=== PATIENT | male | born 1955 | race Caucasian/White ===

== ENCOUNTER → 2016-07-26 | Day surgery (SDC) | payer BC ==
[2016-07-21 08:24] VITALS: BMI 30.4
[~2016-07-26] MED LIST: LACTATED RINGERS 1,000 ML IV SCH; LIDOCAINE 1% 20 ML VIAL (10MG/ML) FOR IV START INTRADERMA PRN; PROPOFOL 10 MG/ML 20 ML VIAL IV ONE
[2016-07-26 12:03] VITALS: RESP 16; TEMP 98.7
--- NOTE | 2016-07-26 13:25 | P.GSHP ---
History of Present Illness H&P Date: 07/26/16 Chief Complaint: GERD, diverticulitis, screening colonoscopy This is a 60-year-old male referred from Dr. Erwin. Patient rents today for EGD colonoscopy. He has had issues with GERD. He is also had problems with intermittent small bowel obstruction. Patient history of diverticulitis. - Constitutional Constitutional: Reports as per HPI Past Medical History Past Medical History: Hypertension, Osteoarthritis (OA) Additional Past Medical History / Comment(s): Diverticulitis, hx perforated bowel History of Any Multi-Drug Resistant Organisms: None Reported Past Surgical History: Bowel Resection, Hernia Repair, Orthopedic Surgery Additional Past Surgical History / Comment(s): bowel resection due to perforation, incisional hernia repair, R carpal tunnel release. Past Anesthesia/Blood Transfusion Reactions: No Reported Reaction Past Psychological History: No Psychological Hx Reported Smoking Status: Former smoker Past Alcohol Use History: Occasional Additional Past Alcohol Use History / Comment(s): Pt smoked from [id number], smoked < 1PPD Past Drug Use History: None Reported - Past Family History Father Family Medical History: Cancer, Dementia Additional Family Medical History / Comment(s): . Mother Family Medical History: No Reported History Additional Family Medical History / Comment(s): Mother will soon be 90yrs old. Sister(s) Family Medical History: Cancer Medications and Allergies Home Medications Medication Instructions Recorded Confirmed Type Garlic 1 tab PO DAILY 06/09/16 07/21/16 History Losartan/Hydrochlorothiazide 1 tab PO DAILY 06/09/16 07/21/16 History [Losartan-Hctz 100-12.5 mg Tab] Richardson-3 Fatty Acids/Fish Oil [Fish 1 cap PO DAILY 06/09/16 07/21/16 History Oil 1,000 mg Softgel] Psyllium Husk (with Sugar) 6 gm PO DAILY 06/09/16 07/21/16 History [Metamucil Powder] Allergies Allergy/AdvReac Type Severity Reaction Status Date / Time No Known Allergies Allergy Verified 07/26/16 11:53 Surgical - Exam Vital Signs Temp Pulse Resp BP Pulse Ox 98.7 F 95 16 150/84 98 07/26/16 12:01 07/26/16 12:01 07/26/16 12:01 07/26/16 12:01 07/26/16 12:01 - General well developed, no distress - Eyes PERRL - ENT normal pinna - Neck no masses - Respiratory normal expansion - Cardiovascular Rhythm: regular - Abdomen Abdomen: soft, non tender Assessment and Plan Plan: GERD, history of diverticulitis we'll perform EGD and screening colonoscopy.
--- NOTE | 2016-07-26 13:48 | P.OP ---
Date of Procedure: 07/26/16 Preoperative Diagnosis: GERD Diverticulitis Screening colonoscopy Postoperative Diagnosis: Mild antral gastritis No evidence of hiatal hernia Minimal esophagitis Diverticulosis Procedure(s) Performed: EGD Colonoscopy Anesthesia: MAC Surgeon: Trae Murphy Pathology: other (Antrum, esophagus) Condition: stable Disposition: PACU Description of Procedure: The patient's placed on the endoscopy table in the lateral position. He received IV sedation. The gastroscope some placed oropharynx. Scope was then placed into the stomach and through the pylorus. The first and second portion of the duodenum appeared normal. Scope was then brought back the antrum and this. Mildly inflamed. A biopsies performed. Scope was unretroflexed and the remainder stomach appeared normal. There is no significant hiatal hernia. The GE junction was at 40 cm the distal esophagus. Inflamed a biopsies performed. The proximal esophagus appeared normal. The scope was withdrawn for patient. Next digital rectal exam was performed which revealed no abnormalities. The flexible colonoscope was then placed patient anus passed throughout the entire colon. The ileocecal valve sutures. The cecum, ascending and transverse colon appeared normal. In the descending and sigmoid colon there is significant diverticular changes. There were some diverticula very large lumens. There is no evidence of any active diverticulitis. The scope was then brought back the rectum this appeared normal. Scope was withdrawn for patient.
[2016-07-26 14:44] VITALS: BP 100/70; PULSE 66
== END ==
LOC: ORWHC2ENDO 11:36
PROVIDERS: ATTEND Surgery
DX: K21.0 Gastro-esophageal reflux disease with esophagitis (principal); K29.70 Gastritis, unspecified, without bleeding; K57.30 Diverticulosis of large intestine without perforation or abscess without bleeding; I10 Essential (primary) hypertension; M19.90 Unspecified osteoarthritis, unspecified site; Z79.899 Other long term (current) drug therapy; Z87.891 Personal history of nicotine dependence
CPT/HCPCS: 88305; 88342; 45378; 43239; J2704; 99153

== ENCOUNTER → 2019-07-26 | Outpatient (CLI) | payer OTHER ==
--- NOTE | 2019-07-27 10:51 | XR ---
EXAMINATION TYPE: XR thoracic spine 2V DATE OF EXAM: 07/26/2019 COMPARISON: NONE HISTORY: 63-year-old male thoracic spine pain TECHNIQUE: 3 views FINDINGS: 12 thoracic vertebral bodies. All pedicles are visualized. Moderate discogenic degenerative change particularly in the mid lumbar spine where mild anterior wedging of a couple midthoracic vert ebral bodies is demonstrated. Findings indented present in 2008 but with progression in degenerative disc disease. Alignment is maintained. IMPRESSION: 1. Moderate degenerative disc disease particularly in the mid lumbar spine, progressed from 2008. 2. Minimal anterior wedging of a couple mid thoracic vertebral bodies seems to have been present at t hat time as well. 3. Accentuated midthoracic kyphosis.
== END | disposition home or self-care (01) ==
LOC: RADXRMAIN 14:30
PROVIDERS: ATTEND Nurse Practitioner Adult Health
DX: M40.294 Other kyphosis, thoracic region (principal)
CPT/HCPCS: 72070

== ENCOUNTER → 2020-02-13 | Outpatient (CLI) | payer MEDICARE ==
--- NOTE | 2020-02-16 08:56 | US ---
EXAMINATION TYPE: US prostate transrectal DATE OF EXAM: 02/13/2020 COMPARISON: CT 07/03/2017 CLINICAL HISTORY: R97.20 elevated PSA level. Difficult exam due to enlarged prostate This examination was performed using the transrectal probe. EXAM MEASUREMENTS: Gland Size: 7.2 x 6.3 x 5.6 cm Volume: 134.7 Predicted PSA: 16.2 Actual PSA (if available): 4.3 Enlarged, bulky prostate. Prominent hypoechoic area visualized measuring 1.0 x 1.1 x 1.0 cm IMPRESSION: 1. There is a hypoechoic area measuring 1 cm within the mid prostate. Additionally, the prostate is h eterogenous and bulky. Additional workup is recommended. Consider biopsy. Predicted PSA = volume x 0.12 ng/ml Calculated Volume = 0.5236 x L x W x H
== END | disposition home or self-care (01) ==
LOC: RADUSWWP 08:00
PROVIDERS: ATTEND Family Medicine
DX: N42.89 Other specified disorders of prostate (principal)
CPT/HCPCS: 76872

== ENCOUNTER → 2020-03-30 | Outpatient (CLI) | payer MEDICARE ==
[2020-03-30 14:22] LABS: Basophils # (A) 0.1 k/uL (0-0.2); Basophils % (A) 1 %; Eosinophils # (A) 0.2 k/uL (0-0.7); Eosinophils % (A) 2 %; HCT 44.3 % (39.0-53.0); HGB 14.5 gm/dL (13.0-17.5); Lymphocytes # (A) 2.1 k/uL (1.0-4.8); Lymphocytes % (A) 28 %; MCH 31.6 pg (25.0-35.0); MCHC 32.8 g/dL (31.0-37.0); MCV 96.5 fL (80.0-100.0); Mean Platelet Volume 8.5; Monocytes # (A) 0.4 k/uL (0-1.0); Monocytes % (A) 6 %; Neutrophils # (A) 4.7 k/uL (1.3-7.7); Neutrophils % (A) 62 %; Platelet Count 202 k/uL (150-450); RBC 4.59 m/uL (4.30-5.90); RDW 12.6 % (11.5-15.5); WBC 7.5 k/uL (3.8-10.6)
== END | disposition home or self-care (01) ==
LOC: LABPAT 13:09
PROVIDERS: ATTEND Orthopaedic Surgery
DX: Z01.818 Encounter for other preprocedural examination (principal); G56.02 Carpal tunnel syndrome, left upper limb
CPT/HCPCS: 36415; 80051; 85025

== ENCOUNTER → 2020-08-05 | Day surgery (SDC) | payer MEDICARE ==
[2020-08-02 14:12] VITALS: BMI 32.3
[~2020-08-05] MED LIST changes: +GLUCAGON 1 MG/ML VIAL ONE; +LIDOCAINE 1% (10MG/ML) FOR IV START INTRADERMA PRN; -LIDOCAINE 1% 20 ML VIAL (10MG/ML) FOR IV START INTRADERMA PRN
[2020-08-05 08:06] VITALS: TEMP 97.3
--- NOTE | 2020-08-05 09:26 | P.GSHP ---
History of Present Illness H&P Date: 08/05/20 Chief Complaint: GI bleed This a 64-year-old male with history of colon cancer. Patient presents today for colonoscopy. Apparently said some rectal bleeding. Past Medical History Past Medical History: Hypertension, Osteoarthritis (OA), Pneumonia, Prostate Disorder Additional Past Medical History / Comment(s): Diverticulitis, hx perforated bowel, obstructed bowel History of Any Multi-Drug Resistant Organisms: None Reported Past Surgical History: Bowel Resection, Hernia Repair, Orthopedic Surgery Additional Past Surgical History / Comment(s): bowel resection due to perforation, incisional hernia repair, manuel carpal tunnel release. Past Anesthesia/Blood Transfusion Reactions: No Reported Reaction Smoking Status: Former smoker - Past Family History Father Family Medical History: Cancer Additional Family Medical History / Comment(s): prostate Mother Family Medical History: No Reported History Additional Family Medical History / Comment(s): Mother will soon be 90yrs old. Sister(s) Family Medical History: Cancer Additional Family Medical History / Comment(s): colon Medications and Allergies Home Medications Medication Instructions Recorded Confirmed Type Garlic 1 tab PO DAILY 06/09/16 08/05/20 History Cannabidiol (Cbd) [Epidiolex] 0 mg PO DIRECTED PRN 04/13/20 08/05/20 History Losartan Potassium [Cozaar] 100 mg PO DAILY 04/13/20 08/05/20 History Tamsulosin HCl [Flomax] 0.4 mg PO QAM 04/13/20 08/05/20 History hydroCHLOROthiazide [Hydrodiuril] 12.5 mg PO DAILY 04/13/20 08/05/20 History Allergies Allergy/AdvReac Type Severity Reaction Status Date / Time No Known Allergies Allergy Verified 08/02/20 14:06 Surgical - Exam Vital Signs Temp Pulse Resp BP Pulse Ox 97.3 F L 102 H 16 133/81 95 08/05/20 08:02 08/05/20 08:02 08/05/20 08:02 08/05/20 08:02 08/05/20 08:02 - General well developed, well nourished, no distress - Eyes PERRL - ENT normal pinna - Neck no masses - Respiratory normal expansion - Cardiovascular Rhythm: regular - Abdomen Abdomen: soft, non tender Assessment and Plan Assessment: History of cancer Rectal bleeding We'll perform colonoscopy.
--- NOTE | 2020-08-05 09:45 | P.OP ---
Date of Procedure: 08/05/20 Preoperative Diagnosis: GI bleed History of colon cancer Postoperative Diagnosis: Diverticulosis Incomplete colonoscopy Procedure(s) Performed: Colonoscopy Anesthesia: MAC Surgeon: Trae Murphy Pathology: none sent Condition: stable Disposition: PACU Description of Procedure: The patient's placed on the endoscopy table in the lateral position. He received IV sedation. Digital rectal exam is performed which revealed no abnormalities. Flexible colonoscope was then placed patient anus passer the colon. The colonoscope could not be passed beyond the sigmoid colon secondary to tortuosity valve. Several times made to maneuver the scope however this impossible. This was withdrawn. There was diverticular changes seen. There is no evidence of any GI bleed. Scope was brought back the rectum this appeared normal. Scope was withdrawn for patient. Patient was scheduled for a barium enema
[2020-08-05 11:18] VITALS: BP 123/77; PULSE 72; RESP 17
--- NOTE | 2020-08-05 17:30 | FL ---
EXAMINATION TYPE: FL barium enema w air contrast DATE OF EXAM: 08/05/2020 CLINICAL HISTORY: 64-year-old male incomplete colonoscopy to the level of the sigmoid colon. Prior hi story of bowel resection and hernia repair as well as 2 episodes of small bowel obstruction. TECHNIQUE: A double contrast barium enema study is performed. Total fluoroscopy time: 4 minutes 20 seconds Total images: 77 COMPARISON: CT 07/03/2017. FINDINGS: Band Tumbler view of the abdomen shows overall non-obstructive bowel gas pattern. Some coils are noted from prior anterior abdominal wall mesh repair. Mid sigmoid colon shows prominent diverticular change and some focal persistent narrowing that could be secondary to chronic diverticulitis. Only seen on the prone overhead radiograph, there is a possible 6 mm filling defect along the left la teral wall of the upper ascending colon, page 71 and 77. Otherwise, no other evidence of any mass or polyp, obstructing or constricting lesion throughout the colon. The appendix was filled and appeared normal. IMPRESSION: 1. Mid sigmoid diverticulosis with persistent short segment narrowing could reflect sequela of chroni c diverticulitis. If concern for annular mass, consideration can be given to CT with IV and rectal co ntrast. 2. Possible tiny 6 mm polyp along the left lateral wall of the upper ascending colon.
== END ==
LOC: ORWHC2ENDO 07:50
PROVIDERS: ATTEND Surgery
DX: K57.30 Diverticulosis of large intestine without perforation or abscess without bleeding (principal); Q43.8 Other specified congenital malformations of intestine; K92.2 Gastrointestinal hemorrhage, unspecified; I10 Essential (primary) hypertension; Z85.038 Personal history of other malignant neoplasm of large intestine; M19.90 Unspecified osteoarthritis, unspecified site; Z87.01 Personal history of pneumonia (recurrent); N40.0 Benign prostatic hyperplasia without lower urinary tract symptoms; Z87.19 Personal history of other diseases of the digestive system; Z90.49 Acquired absence of other specified parts of digestive tract; Z98.890 Other specified postprocedural states; Z87.891 Personal history of nicotine dependence; Z80.42 Family history of malignant neoplasm of prostate; Z80.0 Family history of malignant neoplasm of digestive organs; Z79.899 Other long term (current) drug therapy
CPT/HCPCS: 74280; 45378; J1610; J2704

== ENCOUNTER → 2020-08-20 | Outpatient (CLI) | payer MEDICARE ==
[2020-08-20 12:04] LABS: African American GFR (CKD) >90 (>60 ml/min/1.73 sqM); Blood Urea Nitrogen 20 mg/dL (9-20); Non-African American GFR(CKD) 78 (>60 ml/min/1.73 sqM)
--- NOTE | 2020-08-20 15:00 | CT ---
EXAMINATION TYPE: CT abdomen pelvis w con DATE OF EXAM: 08/20/2020 COMPARISON: CT abdomen and pelvis July 03, 2017 and June 09, 2016 HISTORY: Diverticulitis. CT DLP: 1859 mGycm, Automated Exposure Control for Dose Reduction was Utilized. CONTRAST: CT scan of the abdomen and pelvis is performed with rectal and with IV Contrast, patient injected wit h 100ml mL of Isovue 300. As requested. FINDINGS: LUNG BASES: No significant abnormality is appreciated. LIVER/GB: No significant abnormality is appreciated. PANCREAS: No significant abnormality is seen. SPLEEN: No significant abnormality is seen. ADRENALS: No significant abnormality is seen. KIDNEYS: Subcentimeter low dense lesion left kidney mid pole level posteriorly series 7 image 38 too small to further characterize. No hydronephrosis seen bilaterally. BOWEL: Rectal tube is in place. There is contrast opacification to the mid transverse colon. There is prominent diverticulosis somewhat with residual barium from recent enema. Some streak artifact at th is level makes evaluation suboptimal. Mvih-[id number] generalized narrowing and mild wall thickening . No obvious constricting mass. Remainder of colon unremarkable. No suspicious small bowel dilatation . PROSTATE/SEMINAL VESICLES: Enlarged prostate consistent with BPH. LYMPH NODES: No greater than 1cm abdominal or pelvic lymph nodes are appreciated. OSSEOUS STRUCTURES: Mild to moderate disc space narrowing and vacuum disc phenomenon L4-L5 level. Pos terior calcified disc herniation L2-L3 level effaces the anterior thecal sac. Multilevel spurring in the thoracic spine. Mild/moderate narrowing and spurring of both hip joints. OTHER: [id number] calcified plaque of the aorta extends into branch vessels. Small fat-containi ng bilateral inguinal hernias. Anterior clips from prior ventral wall hernia repair surgery noted. IMPRESSION: Prominent sigmoid colonic diverticulosis, CT findings along with abnormal findings sugges t some sequela of chronic diverticulitis. No obvious suspicious mass or adenopathy.
== END | disposition home or self-care (01) ==
LOC: RADCTMAIN 11:26
PROVIDERS: ATTEND Surgery
DX: K57.30 Diverticulosis of large intestine without perforation or abscess without bleeding (principal); R93.5 Abnormal findings on diagnostic imaging of other abdominal regions, including retroperitoneum; K57.33 Diverticulitis of large intestine without perforation or abscess with bleeding
CPT/HCPCS: 82565; 84520; 74177; 36415; Q9967

== ENCOUNTER → 2021-09-23 | Outpatient (CLI) | payer MEDICARE ==
--- NOTE | 2021-09-23 08:14 | US ---
EXAMINATION TYPE: US duplex aorta DATE OF EXAM: 09/23/2021 COMPARISON: NONE CLINICAL HISTORY: Z13.6 SCREENING FOR CARDIOVASCULAR DISEASE. EXAM MEASUREMENTS: Abdominal Aorta: Proximal: n/a Mid: 2.0 x 1.9cm Distal: 1.6 x 1.5cm Right Iliac: 1.0 x 1.3cm Left Iliac: 0.8 x 1.2cm Difficult and limited study due to patient body habitus Proximal portion of aorta obscured by overlying midline bowel gas, mid and distal aorta and proximal iliacs appear wnl IMPRESSION: Portions of the study are limited however no definite abdominal aortic aneurysm is appreciated at thi s time.
--- NOTE | 2021-09-23 10:00 | ECHOF ---
Referral Reason:I10 Essential primary hypertension MEASUREMENTS -------- HEIGHT: 177.8 cm WEIGHT: 106.6 kg BP: 126/60 RVIDd: 3.4 cm (< 3.3) IVSd: 1.6 cm (0.6 - 1.1) LVIDd: 3.2 cm (3.9 - 5.3) LVPWd: 1.5 cm (0.6 - 1.1) IVSs: 2.2 cm LVIDs: 2.2 cm LVPWs: 1.7 cm LA Diam: 3.6 cm (2.7 - 3.8) LAESV Index (A-L): 22.73 ml/m Ao Diam: 3.4 cm (2.0 - 3.7) AV Cusp: 2.5 cm (1.5 - 2.6) MV EXCURSION: 18.547 mm (> 18.000) MV EF SLOPE: 48 mm/s (70 - 150) EPSS: 0.5 cm MV E Tin: 0.74 m/s MV DecT: 201 ms MV A Tin: 0.70 m/s MV E/A Ratio: 1.05 AR PHT: 1688 ms RAP: 5.00 mmHg RVSP: 23.92 mmHg FINDINGS -------- Sinus rhythm. This was a technically adequate study. The left ventricular size is normal. There is moderate concentric left ventricular hypertrophy. O verall left ventricular systolic function is normal with, an EF between 60 - 65 %. The right ventricle is mildly enlarged. Normal LA size by volume 22+/-6 ml/m2. The right atrium is normal in size. Aneurysmal Interatrial septum. There is mild aortic regurgitation. The mitral valve is normal. Mild tricuspid regurgitation present. Right ventricular systolic pressure is normal at < 35 mmHg. Trace/mild (physiologic) pulmonic regurgitation. The aortic root size is normal. IVC Not well visulized. There is no pericardial effusion. CONCLUSIONS -------- 1. The left ventricular size is normal. 2. There is moderate concentric left ventricular hypertrophy. 3. Overall left ventricular systolic function is normal with, an EF between 60 - 65 %. 4. The right ventricle is mildly enlarged. 5. Normal LA size by volume 22+/-6 ml/m2. 6. Aneurysmal Interatrial septum. 7. There is mild aortic regurgitation. 8. Mild tricuspid regurgitation present. 9. Trace/mild (physiologic) pulmonic regurgitation. 10. There is no pericardial effusion. PACKAGING MANAGER: Grecia Small RDCS
== END | disposition home or self-care (01) ==
LOC: RADUSWWP 07:31
PROVIDERS: ATTEND Family Medicine
DX: Z13.6 Encounter for screening for cardiovascular disorders (principal); I11.9 Hypertensive heart disease without heart failure; I08.2 Rheumatic disorders of both aortic and tricuspid valves; I25.3 Aneurysm of heart
CPT/HCPCS: 93306; 93979

== ENCOUNTER 2022-01-10 06:27 | Day surgery (SDC) | payer MEDICARE ==
[2022-01-10] MEDS ORDERED: SODIUM CHLORIDE 0.9% 500 ML 500 ML IV ONE (06:48)
[2022-01-10 06:49] VITALS: TEMP 98.3
[2022-01-10] MEDS ORDERED: fentaNYL (PF) 50 MCG/ML 2 ML AMP ONE (07:18)
[2022-01-10 08:38] VITALS: RESP 16
[2022-01-10] MEDS: fentaNYL (PF) 50 MCG/ML 2 ML AMP IV ONE ×2 (08:47→08:51)
[2022-01-10] MEDS ORDERED: MIDAZOLAM 2 MG/2 ML VIAL IV ONE ×2 (08:47→08:51)
[2022-01-10 09:58] VITALS: BP 122/60; PULSE 60
--- NOTE | 2022-01-10 12:14 | P.PCN ---
Date of Procedure: 01/10/22 Operative Findings: TRANSESOPHAGEAL ECHOCARDIOGRAM BUSINESS OPERATIONS SPECIALIST: EDSON GIBBS MD, RPVI INDICATION: Rule out cardiac source of embolization in this gentleman who had TIA/CVA SEDATION: Conscious sedation COMPLICATION: None LEVEL OF SEDATION Moderate to sedation length of 12 minutes PROCEDURE DESCRIPTION: After obtaining an informed consent, the patient was brought to transesophageal echocardiogram room. Pulse oximetry and heart monitors were attached to the patient. The patient throat was sprayed using lidocaine. The patient was turned into left lateral position. After that a bite guard was placed. After an appropriate conscious sedation was initiated, the transesophageal echocardiogram was advanced through a bite guard into the mid esophagus. A 2-D echocardiogram images, color Doppler images, continuous wave images, pulse-wave images, of various cardiac structure were performed. After that the transesophageal echocardiogram probe was advanced into the stomach and fixed to obtain transgastric view was. The probe was brought into the mid esophagus. Inter-atrial septum was interrogated using 2D images, color Doppler images, and then contrast study. After that transesophageal echocardiogram was withdrawn out and upon withdrawing the descending thoracic aorta all the way up to the arch was evaluated. FINDING: Left ventricular dimension and systolic function appeared to be within normal limits. The right ventricular dimension and systolic function appeared to be within normal limits. The left atrium appeared to be mildly dilated. The left atrial appendage appeared to be free from any thrombus. The interatrial septum appeared to be intact. Aortic valve is trileaflet valve without stenosis with mild regurgitation. The mitral valve seems to be mildly thickened with mild MR. Normal tricuspid valve and pulmonic valve. No evidence of pericardial effusion identified CONCLUSION: 1. No evidence of cardiac source of embolization 2. Intact interatrial septum with no shunt 3. Intact left atrial appendage with no thrombus 4. Normal left ventricular dimension and systolic function 5. Mildly thickened mitral valve leaflets with mild MR 6. Aortic sclerosis with mild aortic regurgitation
== END 2022-01-10 10:08 | disposition home or self-care (01) ==
LOC: CATHCVL 06:27
PROVIDERS: ATTEND Internal Medicine Interventional Cardiology
DX: I08.0 Rheumatic disorders of both mitral and aortic valves (principal); I10 Essential (primary) hypertension; F17.210 Nicotine dependence, cigarettes, uncomplicated; E66.3 Overweight; Z20.822 Contact with and (suspected) exposure to COVID-19; Z86.73 Personal history of transient ischemic attack (TIA), and cerebral infarction without residual deficits; Z68.34 Body mass index [BMI] 34.0-34.9, adult; Z79.899 Other long term (current) drug therapy; Z79.82 Long term (current) use of aspirin; Z90.49 Acquired absence of other specified parts of digestive tract
CPT/HCPCS: 93312; 93325; 87635; J2250; J3010

== ENCOUNTER 2024-04-21 18:16 | Emergency (ER) | payer MEDICARE ==
[2024-04-21] MEDS: KETOROLAC 15 MG/ML 1 ML VIAL IM STA (19:06)
[2024-04-21] MEDS: KETOROLAC 15 MG/ML 1 ML VIAL IVP STA (19:06)
[2024-04-21] MEDS: HYDROmorphone 1 MG/ML 1 ML SYRINGE IM STA (19:06)
[2024-04-21] MEDS: HYDROmorphone 1 MG/ML 1 ML SYRINGE IVP STA (19:07)
--- NOTE | 2024-04-21 19:35 | ED ---
General Adult HPI - General Chief complaint: Extremity Injury, Upper Stated complaint: Fall Time Seen by Provider: 04/21/24 18:54 Source: patient, family, RN notes reviewed, old records reviewed Mode of arrival: ambulatory Limitations: no limitations - History of Present Illness Initial comments: 68-year-old male presenting with left shoulder pain. Patient fell in the shower with sudden onset deformity and pain of the left shoulder. No head or neck trauma. No other injuries reported. - Related Data Home Medications Medication Instructions Recorded Confirmed Garlic 1 tab PO DAILY 06/09/16 01/09/22 Losartan Potassium [Cozaar] 100 mg PO DAILY 04/13/20 01/09/22 Tamsulosin HCl [Flomax] 0.4 mg PO QAM 04/13/20 01/09/22 hydroCHLOROthiazide [Hydrodiuril] 12.5 mg PO DAILY 04/13/20 01/09/22 Aspirin 81 mg PO DAILY 01/09/22 01/09/22 Celecoxib [CeleBREX] 200 mg PO DAILY 01/09/22 01/09/22 Allergies Allergy/AdvReac Type Severity Reaction Status Date / Time No Known Allergies Allergy Verified 01/10/22 06:40 Review of Systems ROS Statement: Those systems with pertinent positive or pertinent negative responses have been documented in the HPI. ROS Other: All systems not noted in ROS Statement are negative. Past Medical History Past Medical History: Hypertension, Osteoarthritis (OA), Pneumonia, Prostate Disorder Additional Past Medical History / Comment(s): Diverticulitis, hx perforated bowel, obstructed bowel, slight leaky valve per pt., pneumonia couple years ago History of Any Multi-Drug Resistant Organisms: None Reported Past Surgical History: Bowel Resection, Hernia Repair, Orthopedic Surgery Additional Past Surgical History / Comment(s): bowel resection due to perforation, incisional hernia repair, manuel carpal tunnel release. Past Anesthesia/Blood Transfusion Reactions: No Reported Reaction Past Psychological History: No Psychological Hx Reported Smoking Status: Former smoker - Past Family History Father Family Medical History: Cancer Additional Family Medical History / Comment(s): prostate Mother Family Medical History: No Reported History Additional Family Medical History / Comment(s): Mother will soon be 90yrs old. Sister(s) Family Medical History: Cancer Additional Family Medical History / Comment(s): colon General Exam Limitations: no limitations General appearance: alert, in no apparent distress Head exam: Present: atraumatic, normocephalic Eye exam: Present: normal appearance, PERRL ENT exam: Present: normal exam Neck exam: Present: normal inspection. Absent: tenderness, meningismus Respiratory exam: Present: normal lung sounds bilaterally. Absent: respiratory distress, wheezes Cardiovascular Exam: Present: regular rate, normal rhythm GI/Abdominal exam: Present: soft. Absent: distended, tenderness Extremities exam: Present: other (Deformity of the left shoulder, diminished left radial pulse, patient reports numbness to the hand). Absent: tenderness Neurological exam: Present: alert, oriented X3 Psychiatric exam: Present: normal affect, normal mood Skin exam: Present: warm, dry, intact. Absent: cyanosis, diaphoretic Course Vital Signs 04/21/24 04/21/24 04/21/24 18:21 19:12 19:42 Temperature 97.6 F Pulse Rate 82 80 86 Respiratory 20 20 20 Rate Blood Pressure 150/79 139/65 157/70 O2 Sat by Pulse 97 98 92 L Oximetry 04/21/24 04/21/24 04/21/24 19:45 19:50 20:05 Temperature Pulse Rate 68 Respiratory 14 16 12 Rate Blood Pressure 149/65 163/83 139/69 O2 Sat by Pulse 86 L 81 L 93 L Oximetry Procedures - Orthopedic Joint Reduction Joint #1 Consent Obtained: written consent Side: left Joint Reduction Location: shoulder Analgesia: procedural sedation Shoulder Technique Used (if applicable): traction/counter-traction Post-Reduction Neuro Exam: intact Post-Reduction Vascular Exam: intact Post Reduction X-Ray Obtained: Yes Post Reduction X-Ray Results: reduced Splint Applied: Yes Patient Tolerated Procedure: well - Procedural Sedation *Procedural Sedation Start Time: 19:42 *Procedural Sedation Stop Time: 20:15 *Risks,benefits, and alternative therapies discussed?: Yes *Patient indicates understanding of risk/benefit discussion?: Yes *Indications: fracture/dislocation reduction Presedation Evaluation: Patient awake and alert, in sinus rhythm, vital signs stable. *ASA Class: II *Mallampati Airway Score: 2 Preparation: radiation monitor applied, pulse oximeter, capnometry used, supplemental O2 applied, suction/airway equipment at bedside, IV secured Ketamine: IV Ketamine Dose: 50 IV Propofol Dose (mgs): 50 Complications: none Patient Tolerated Procedure: well Medical Decision Making - Medical Decision Making Was pt. sent in by a medical professional or institution (THERESA Zepeda, SALES OPERATIONS CONSULTANT, urgent care, hospital, or retirement...) When possible be specific @ -No Did you speak to anyone other than the patient for history (EMS, parent, family, police, friend...)? What history was obtained from this source @ -No Did you review nursing and triage notes (agree or disagree)? Why? @ -I reviewed and agree with nursing and triage notes Were old charts reviewed (outside hosp., previous admission, EMS record, old EKG, old radiological studies, urgent care reports/EKG's, retirement records)? Report findings @ -No old charts were reviewed Differential Musculoskeletal Muscular strain, contusion, ligament sprain, fracture, arthritis, septic arthritis, bursitis, cellulitis, muscle spasm, nerve compression, DVT, arterial occlusion, herpes zoster, electrolyte abnormality, tumor.... This is not meant to be in all inclusive list EKG interpreted by me (3pts min.). @ -As above X-rays interpreted by me (1pt min.). @Initial x-ray showing anterior dislocation of the left shoulder without fracture. Postreduction x-ray shows reduced shoulder CT interpreted by me (1pt min.). @ -None done U/S interpreted by me (1pt. min.). @ -None done What testing was considered but not performed or refused? (CT, X-rays, U/S, labs)? Why? @ -None What meds were considered but not given or refused? Why? @ -None Did you discuss the management of the patient with other professionals (professionals i.e. THERESA Zepeda, SALES OPERATIONS CONSULTANT, lab, RT, psych nurse, psychotherapist social worker, entry level electrical engineer, teacher, special officer, director of casework department)? Give summary @ -No Was smoking cessation discussed for >3mins.? @ -No Was critical care preformed (if so, how long)? @ -No Were there social determinants of health that impacted care today? How? (Homelessness, low income, unemployed, alcoholism, drug addiction, transportation, low edu. Level, literacy, decrease access to med. care, long term, rehab)? @ -No Was there de-escalation of care discussed even if they declined (Discuss DNR or withdrawal of care, Hospice)? DNR status @ -No What co-morbidities impacted this encounter? (DM, HTN, Smoking, COPD, CAD, Cancer, CVA, ARF, Chemo, Hep., AIDS, mental health diagnosis, sleep apnea, morbid obesity)? @ -None Was patient admitted / discharged? Hospital course, mention meds given and route, prescriptions, significant lab abnormalities, going to OR and other pertinent info. @68-year-old male with mechanical fall, deformity to the left shoulder. Distal pulse is palpable but diminished on the left and hand is numb. Patient given medication, and sedated for shoulder reduction. Reduction and sedation are uneventful. Patient placed in a sling. Given orthopedic follow-up. Undiagnosed new problem with uncertain prognosis? @ -No Drug Therapy requiring intensive monitoring for toxicity (Heparin, Nitro, Insulin, Cardizem)? @ -No Were any procedures done? @ -Yes, procedural sedation and shoulder reduction Diagnosis/symptom? @Left shoulder dislocation Acute, or Chronic, or Acute on Chronic? @ -Acute Uncomplicated (without systemic symptoms) or Complicated (systemic symptoms)? @ -Default Side effects of treatment? @ -No Exacerbation, Progression, or Severe Exacerbation? @ -No Poses a threat to life or bodily function? How? (Chest pain, [place], [place], pneumonia, PE, COPD, DKA, ARF, appy, cholecystitis, CVA, Diverticulitis, Homicidal, Suicidal, threat to staff... and all critical care pts) @ -low Risk at this time Disposition Clinical Impression: Shoulder dislocation Disposition: HOME SELF-CARE Condition: Fair Instructions (If sedation given, give patient instructions): Shoulder Dislocation (ED), Moderate Sedation (ED) Is patient prescribed a controlled substance at d/c from ED?: No Referrals: Hakeem Blunt MD [Primary Care Provider] - 1-2 days Aman Aguilar MD [Medical Doctor] - 1-2 days Time of Disposition: 20:20
[2024-04-21] MEDS: PROPOFOL 10 MG/ML 20 ML VIAL IV ONE (19:43)
[2024-04-21] MEDS: KETAMINE 10 MG/ML 20 ML VIAL IV ONE (19:43)
--- NOTE | 2024-04-21 19:50 | XR ---
EXAMINATION TYPE: XR shoulder limited LT DATE OF EXAM: 04/21/2024 7:16 PM CLINICAL INDICATION: Male, 68 years old with history of fall; COMPARISON: None TECHNIQUE: XR shoulder limited LT; examined in AP, internally rotated and scapular Y projections. FINDINGS/IMPRESSION: 1. Anterior inferior shoulder dislocation. 2. Underpenetrated film, no No evidence of fracture at this time. [facility], , 04/21/2024 7:48 PM
--- NOTE | 2024-04-21 20:00 | XR ---
EXAMINATION TYPE: XR shoulder limited LT DATE OF EXAM: 04/21/2024 7:53 PM CLINICAL INDICATION: Male, 68 years old with history of L shoulder reduction; [facility] COMPARISON: Same day radiograph TECHNIQUE: XR shoulder limited LT; examined in AP, internally rotated and scapular Y projections. FINDINGS/IMPRESSION: Interval reduction in left shoulder dislocation. No fracture definitely visualized. [facility], , 04/21/2024 7:58 PM
[2024-04-21 21:20] VITALS: BP 148/86; PULSE 75; RESP 18; TEMP 98
== END 2024-04-21 21:20 | disposition home or self-care (01) ==
LOC: EC 18:16
CPT/HCPCS: 23650; 96374; 96375; 99152; 99284

== ENCOUNTER → 2024-06-03 | Outpatient (CLI) | payer MEDICARE ==
--- NOTE | 2024-06-05 11:23 | MR ---
EXAMINATION TYPE: MR shoulder LT wo con DATE OF EXAM: 06/03/2024 COMPARISON: Outside left shoulder x-ray May 23, 2024 HISTORY: Lt shoulder dislocation due to fall, pain and inability to lift arm up TECHNIQUE: Multiplanar, multisequence imaging of the left shoulder is performed without contrast. FINDINGS: Rotator Cuff: Intact infraspinatus tendon. Full-thickness retracted tear of at least the majority of the supraspinatus tendon. Heterogeneous subscapularis tendon with wavy course and surrounding fluid Acromioclavicular Joint: Moderate narrowing and spurring with subchondral cystic change. Mild to mode rate capsular hypertrophy. Glenohumeral Joint: Moderate sized joint effusion. Narrowing is present. No significant spurring. Labrum: Increased signal superior labrum consistent with tear. Biceps Tendon: The long head of biceps is in normal location within bicipital groove. Bone marrow signal: No focal abnormal marrow signal is appreciated. Other: No additional significant abnormality is appreciated. IMPRESSION: 1. Significant full-thickness retracted tear of the supraspinatus tendon. 2. Tendinosis of the subscapularis tendon. 3. Superior labral tear. 4. Moderate-sized glenohumeral joint effusion. At least moderate degenerative changes are present as detailed above. [facility], , 06/05/2024 11:21 AM
== END | disposition home or self-care (01) ==
LOC: RADMRIMAIN 13:03
PROVIDERS: ATTEND Orthopaedic Surgery
DX: S46.012A Strain of muscle(s) and tendon(s) of the rotator cuff of left shoulder, initial encounter (principal); S43.432A Superior glenoid labrum lesion of left shoulder, initial encounter; M67.814 Other specified disorders of tendon, left shoulder; M25.412 Effusion, left shoulder

== ENCOUNTER → 2024-06-10 | Outpatient (CLI) | payer MEDICARE ==
[2024-06-10 15:14] LABS: Potassium 4.2 mmol/L (3.5-5.5)
[2024-06-10 16:22] LABS: Basophils # (A) 0.06 X 10*3/uL (0.00-0.10); Basophils % (A) 0.9 %; Eosinophils # (A) 0.14 X 10*3/uL (0.04-0.35); Eosinophils % (A) 2.1 %; HGB 15.5 g/dL (13.0-17.0); Lymphocytes # (A) 2.01 X 10*3/uL (0.90-5.00); Lymphocytes % (A) 29.5 %; MCH 32.2 pg (27.0-32.0); MCHC 34.4 g/dL (32.0-37.0); MCV 93.6 FL (80.0-97.0); Mean Platelet Volume 11.3 FL (9.5-12.2); Monocytes # (A) 0.56 X 10*3/uL (0.20-1.00); Monocytes % (A) 8.2 %; NRBC Per 100 WBC 0 X 10*3/uL (0.00-0.01); Neutrophils % (A) 58.6 %; Platelet Count 179 X 10*3/uL (140-440); RBC 4.81 X 10*6/uL (4.40-5.60); RDW 12.2 % (11.5-14.5); WBC 6.82 X 10*3/uL (4.50-10.00)
== END | disposition home or self-care (01) ==
LOC: LABPAT 11:48
PROVIDERS: ATTEND Orthopaedic Surgery
DX: Z01.812 Encounter for preprocedural laboratory examination (principal); M75.42 Impingement syndrome of left shoulder
CPT/HCPCS: 80051; 85025

== ENCOUNTER → 2024-07-02 | Day surgery (SDC) | payer MEDICARE ==
[~2024-07-02] MED LIST changes: +DEXAMETHASONE SOD PHOSPHATE 4 MG/ML 1 ML VIAL IV ONE; -GLUCAGON 1 MG/ML VIAL ONE; +HYDROmorphone 0.5 MG/0.5 ML SYRINGE IVP PRN; -LIDOCAINE 1% (10MG/ML) FOR IV START INTRADERMA PRN; +ONDANSETRON 4 MG/2 ML VIAL IVP ONE; -PROPOFOL 10 MG/ML 20 ML VIAL IV ONE
--- NOTE | 2024-07-02 00:20 | HP ---
HISTORY AND PHYSICAL DATE OF SURGERY: 07/02/2024. HISTORY OF PRESENT ILLNESS: Rajesh Orr is a 68-year-old gentleman seen with progressive left shoulder pain. We discussed options regarding treatment. He elected to proceed with left shoulder arthroscopy. Consent was obtained. Cardiac clearance provided by Dr. Hamilton. PAST MEDICAL HISTORY: Cardiovascular disease, hypertension. PAST SURGICAL HISTORY: Bowel surgery, carpal tunnel release, herniorrhaphy. DAILY MEDICATIONS: 1. Celebrex. 2. Losartan. 3. Aspirin. ALLERGIES: None. SOCIAL HISTORY: Denies tobacco use. PHYSICAL EVALUATION OF THE LEFT SHOULDER: Flexion is 110 degrees. Abduction is 10 degrees. External rotation is 10 with significant weakness. Tenderness along the anterolateral acromion. Drop-arm sign is positive. Impingement is positive at 60 degrees. Distal neurovascular exam is intact. IMAGING STUDIES: Radiographs of the left shoulder revealed a type 2 acromion, acromioclavicular joint osteoarthritis. MRI of left shoulder revealed a retracted rotator cuff tendon tear, labral tear. Moderate osteoarthritis. IMPRESSION: 1. Left shoulder impingement with retracted rotator cuff tendon tear. 2. Left shoulder labral tear. 3. Left shoulder history of dislocation. 4. Hypertension. 5. Cardiovascular disease. PLAN: Left shoulder arthroscopy with rotator cuff repair, decompression, Gely procedure, debridement of labral tear. MMODL / IJN: [id number] /
== END ==
LOC: OR 07:07
PROVIDERS: ATTEND Orthopaedic Surgery
DX: M25.512 Pain in left shoulder (principal); M25.812 Other specified joint disorders, left shoulder; I10 Essential (primary) hypertension; I25.10 Atherosclerotic heart disease of native coronary artery without angina pectoris; Z53.9 Procedure and treatment not carried out, unspecified reason

== ENCOUNTER 2024-07-08 05:34 | Day surgery (SDC) | payer MEDICARE ==
--- NOTE | 2024-07-07 08:24 | P.HPOR ---
History of Present Illness H&P Date: 07/07/24 Chief Complaint: Left shoulder pain and weakness The patient is a 68-year-old male presents with left shoulder pain and weakness after injuring himself 04/21/2024. He slipped and fell and shower. He dislocated his left shoulder. Subsequently he went to the emergency room and had a closed reduction performed. He did wear sling for a period of time. He is having a difficult time raising his arm at all over his head and is having significant pain as well. Review of Systems Per HPI Past Medical History Past Medical History: Hypertension, Osteoarthritis (OA), Pneumonia, Prostate Disorder Additional Past Medical History / Comment(s): Diverticulitis, hx perforated bowel, obstructed bowel, slight leaky valve per pt., pneumonia couple years ago. BPH History of Any Multi-Drug Resistant Organisms: None Reported Past Surgical History: Bowel Resection, Hernia Repair, Orthopedic Surgery Additional Past Surgical History / Comment(s): bowel resection due to perforation, incisional hernia repair, manuel carpal tunnel release. colonoscopy Past Anesthesia/Blood Transfusion Reactions: No Reported Reaction Past Psychological History: No Psychological Hx Reported Smoking Status: Former smoker Past Alcohol Use History: Occasional Additional Past Alcohol Use History / Comment(s): Pt smoked from [id number], smoked < 1PPD Past Drug Use History: None Reported - Past Family History Father Family Medical History: Cancer Additional Family Medical History / Comment(s): prostate Mother Family Medical History: No Reported History Additional Family Medical History / Comment(s): Mother will soon be 90yrs old. Sister(s) Family Medical History: Cancer Additional Family Medical History / Comment(s): colon Medications and Allergies Home Medications Medication Instructions Recorded Confirmed Type Garlic 1 tab PO DAILY 06/09/16 07/07/24 History Tamsulosin HCl [Flomax] 0.4 mg PO QAM 04/13/20 07/07/24 History Aspirin 81 mg PO DAILY 01/09/22 07/07/24 History Celecoxib [CeleBREX] 200 mg PO DAILY 01/09/22 07/07/24 History HYDROcodone/APAP 5-325MG [[place] 1 tab PO Q6H PRN 06/30/24 07/07/24 History 5-325] Losartan/Hctz 100-25 1 tab PO DAILY 06/30/24 07/07/24 History Allergies Allergy/AdvReac Type Severity Reaction Status Date / Time No Known Allergies Allergy Verified 07/07/24 08:13 Physical Examination - Shoulder left Tenderness with palpation: anterior, bicipital groove Pain: with abduction, with forward flexion ROM: forward flexion: 40 degrees (Actively, 140 passively) ROM: internal rotation: lower lumbar ROM: external rotation: 60 degrees Crepitus with motion: Yes Strength: abduction: 3/5 Strength: external rotation: 4/5 Tests: internal impingement tests: positive, external impingment tests: positive, anterior instability tests: positive Apprehension: anterior apprehension present: yes Results She is a well-developed well-nourished male approximately 5 foot 10, 230 pounds of endomorphic habitus. HEENT exam is nonfocal, neck is supple. He's tender but the left anterior glenohumeral joint. He has limited active and passive range of motion. [place], Neer sign, and speed tests are positive. His distal neurovascular appears intact in the left upper extremity. - Diagnostic results Shoulder MRI: image reviewed (MRI of the left shoulder shows evidence of a tear involving the supraspinatus with some retraction. An anterior labral tear is noted in addition to possible superior labral involvement is noted.) Assessment and Plan Assessment: Acute left glenohumeral dislocation with symptomatic rotator cuff tear Plan: I talked to the patient and his regarding his condition along with treatment options. At this point he is quite symptomatic having both pain and weakness after this acute injury despite attempted conservative measures. After a thorough discussion he opts to proceed with surgery. We'll plan to proceed with arthroscopy of left shoulder with probable rotator cuff repair, subacromial decompression, and possible biceps tenotomy.
[2024-07-08] MEDS ORDERED: LIDOCAINE 1% (10MG/ML) FOR IV START INTRADERMA PRN (06:11)
[2024-07-08] MEDS: IV FLUID CONTINUATION 1,000 ML IV ONE ×2 (06:35→10:02)
[2024-07-08] MEDS: MIDAZOLAM 2 MG/2 ML VIAL IV PRN (06:41)
[2024-07-08] MEDS: DEXAMETHASONE SOD PHOSPHATE 4 MG/ML 1 ML VIAL IV ONE (06:57)
[2024-07-08] MEDS: LACTATED RINGERS 1,000 ML IV SCH (06:58)
[2024-07-08] MEDS: ONDANSETRON 4 MG/2 ML VIAL IVP ONE (06:58)
[2024-07-08] MEDS ORDERED: fentaNYL (PF) 50 MCG/ML 2 ML AMP IVP PRN (07:00)
[2024-07-08] MEDS ORDERED: HYDROmorphone 0.5 MG/0.5 ML SYRINGE IVP PRN (07:00)
--- NOTE | 2024-07-08 07:00 | P.ANPRN ---
Procedure Note - Anesthesia - Nerve Block Performed Left Interscalene Single Time Out Performed: Yes Date of Procedure: 07/08/24 Procedure Start Time: 06:40 Procedure Stop Time: 06:45 Location of Patient: PreOp Indication: Acute Post-Operative Pain, Analgesia, Requested by Surgeon Sedation Type: Sedate with meaningful contact maintained Preparation: Sterile Prep Position: Sitting Catheter: None Needle Types: Pajunk Needle Gauge: 21 Ultrasound used to visualize needle placement: Yes Ultrasound used to observe medication spread: Yes Injectate: 0.5% Ropivacaine (see comment for volume) (Ropiv 20ml+Decadron. Negative stimulation @0.5MA.) Blood Aspirated: No Pain Paresthesia on Injection Noted: No Resistance on Injection: Normal Image Stored and Saved: Yes Events: Uneventful and Well Tolerated
[2024-07-08] MEDS ORDERED: MIDAZOLAM 2 MG/2 ML VIAL ONE (07:25)
[2024-07-08] MEDS ORDERED: ROPIVACAINE 5 MG/ML 30 ML VIAL ONE (07:25)
[2024-07-08] MEDS ORDERED: fentaNYL (PF) 50 MCG/ML 2 ML AMP ONE (07:25)
[2024-07-08] MEDS ORDERED: PHENYLEPHRINE 10 MG/ML VIAL ONE (07:25)
[2024-07-08] MEDS ORDERED: PHENYLEPHRINE-0.9% NACL SYG 1,000 MCG/10 ML SYRINGE ONE (07:25)
[2024-07-08] MEDS ORDERED: ROCURONIUM 10 MG/ML (5 ML VIAL) IV ONE (07:25)
[2024-07-08] MEDS ORDERED: PROPOFOL 10 MG/ML 20 ML VIAL IV ONE (07:25)
[2024-07-08] MEDS ORDERED: ePHEDrine 50 MG/ML 1 ML VIAL ONE (07:25)
[2024-07-08] MEDS ORDERED: SUCCINYLCHOLINE CHLORIDE 200 MG/10 ML VIAL IV ONE (07:25)
[2024-07-08] MEDS ORDERED: DEXAMETHASONE SOD PHOSPHATE 4 MG/ML 1 ML VIAL ONE (07:25)
[2024-07-08] MEDS ORDERED: WATER FOR INJECTION, STERILE 10 ML VIAL IV ONE (07:25)
[2024-07-08] MEDS ORDERED: NEOSTIGMINE 1 MG/ML 10 ML VIAL ONE (07:25)
[2024-07-08] MEDS ORDERED: LIDOCAINE 1% INJ 10MG/ML (20 ML MDV) ONE (07:25)
[2024-07-08] MEDS ORDERED: GLYCOPYRROLATE 0.2 MG/ML 2 ML VIAL ONE (07:25)
[2024-07-08] MEDS: EPINEPHrine (PF) 1 ML in SODIUM CHLORIDE 0.9% IRRIGATIO 3,000 ML IRRIGATION ONE ×4 (07:30)
[2024-07-08] MEDS: LACTATED RINGERS 1,000 ML IV ONE (08:50)
--- NOTE | 2024-07-08 09:11 | P.OP ---
Date of Procedure: 07/08/24 Preoperative Diagnosis: Left rotator cuff tear Postoperative Diagnosis: 4 cm left rotator cuff tear, high-grade partial-thickness tear intra-articular portion long head of the biceps, anterior labral tear Procedure(s) Performed: Left shoulder arthroscopic subacromial decompression, rotator cuff repair, biceps tenotomy, anterior labral debridement Implants: Arthrex 4.75 mm swivel lock anchor x 2, 5.5 mm swivel lock anchor x 2 Anesthesia: SELMA, regional Surgeon: Iglesia Mattson Catheter Builder #1: Rene Vivas Estimated Blood Loss (ml): 10 Pathology: none sent Condition: stable Disposition: PACU Indications for Procedure: The patient is a 68-year-old gentleman who presents after a previous injury to his left shoulder in which he suffered a dislocation. He had persistent pain and weakness and subsequent MRI showed evidence of a rotator cuff tear. A discussion of the risks and benefits of operative intervention versus continued conservative measures was made with the patient. He opted to proceed with surgery. Operative risks include infection, neurovascular injury, development of blood clots, possible tendon rerupture, possible postoperative stiffness, and possible need for subsequent procedures was discussed. Informed consent was obtained. Operative Findings: As below Description of Procedure: The patient was brought to the operating room, and after induction of general anesthesia was placed in a beachchair position. A preoperative interscalene block was placed for postoperative analgesia. I examined the left shoulder. There was no gross block to passive motion. The left upper extremity was prepped and draped in normal fashion. The bony outlines the acromion, distal clavicle, and coracoid process were outlined with a skin marker. The glenohumeral joint was inflated with 50 mL of saline utilizing a spinal needle from posterior approach. A posterior portal was made through a 5 mm skin incision 1 cm medial and inferior to the posterior lateral border time. A blunt trocar was used to easily into the joint. Diagnostic arthroscopy was performed. An anterior portal was made just lateral to the coracoid process entering the joint above the subscapularis tendon. The subscapularis tendon appeared to be intact. Anterior labrum was intact. The inferior recess was inspected. The posterior labrum was intact. There was a high-grade partial-thickness tear of the long head of the biceps involving interarticular portion. It was elected to proceed with release at this point. This was released from the superior labrum with electrocautery and was allowed to retract to the bicipital groove. On inspection the rotator cuff, a full-thickness tear involving the supraspinatus and infraspinatus were noted. A lateral portal was made 2 centimeters inferior to the anterior lateral border of the acromion. The rotator cuff was then mobilized and easily brought back to the greater tuberosity. The soft tissue on the undersurface of the acromion was debrided with a motorized shaver and electrocautery clearly defining the anterior medial and lateral borders as well as the distal clavicle. An anterior inferior acromioplasty was performed with a motorized [place] starting anterolateral, then extending this posteriorly, then extending this medially. I converted to a flat acromion and this was verified in the posterior and lateral viewing portals. The greater tuberosity was lightly decorticating with a shaver down to a bleeding bony surface. An accessory superior lateral portal was made just off the lateral edge of the acromion for anchor placement. 2 anchors were then placed just off the articular surface with the appropriate starting awl. 4.75 mm anchors preloaded with #2 fiber tape were placed. Good purchase was obtained. These fiber tapes were then passed the rotator cuff with a scorpion suture passer. A lateral row was created crisscrossing these tapes. 5.5 mm swivel lock anchors x-2 were placed laterally. Good purchase was obtained. Final arthroscopic view showed adequate compression at the footprint. The arthroscope was then removed. The portals were closed with simple 3-0 nylon sutures. A sterile dressing was applied in addition to an abductor brace. The patient was then awoken from general anesthesia and transferred to recovery room in good condition. Blood loss was estimated at 10 mL. No complications were incurred. Sponge and needle counts were correct in the case. Rene CARDENAS assisted and the major components of the case to include arm positioning, anchor placement, and rotator cuff repair.
[2024-07-08 09:53] VITALS: TEMP 97.2
[2024-07-08 10:05] VITALS: RESP 16
[2024-07-08 10:25] VITALS: BP 106/61; PULSE 79
== END 2024-07-08 11:05 | disposition home or self-care (01) ==
LOC: OR 05:34
PROVIDERS: ATTEND Orthopaedic Surgery
DX: S46.012A Strain of muscle(s) and tendon(s) of the rotator cuff of left shoulder, initial encounter (principal); S46.112A Strain of muscle, fascia and tendon of long head of biceps, left arm, initial encounter; S43.492A Other sprain of left shoulder joint, initial encounter; S43.005A Unspecified dislocation of left shoulder joint, initial encounter; G89.18 Other acute postprocedural pain; I10 Essential (primary) hypertension; N40.0 Benign prostatic hyperplasia without lower urinary tract symptoms; M19.90 Unspecified osteoarthritis, unspecified site; Z79.1 Long term (current) use of non-steroidal anti-inflammatories (NSAID); Z79.82 Long term (current) use of aspirin; Z79.899 Other long term (current) drug therapy; Z87.891 Personal history of nicotine dependence; W18.2XXA Fall in (into) shower or empty bathtub, initial encounter; Y93.E1 Activity, personal bathing and showering
CPT/HCPCS: 64415; 29827; 29826; 29822; C1713 ×2; J2250; J0330; J1100; J2710; J0690; J2405; J0171; J2003; J3010; J2795; J2704; J2371 ×2; J1596

== ENCOUNTER 2024-07-09 12:53 | Emergency (ER) | payer MEDICARE ==
[2024-07-09 12:56] VITALS: RESP 18
[2024-07-09 13:44] LABS: Appearance,Urine Clear (Clear); Bilirubin,Urine Negative (Negative); Blood,Urine Negative (Negative); Color,Urine Colorless; Glucose,Urine (UA) Negative (Negative); Ketones,Urine Negative (Negative); Leukocyte Esterase,Urine Negative (Negative); Nitrite,Urine Negative (Negative); Protein,Urine Negative (Negative); Specific Gravity,Urine 1.014 (1.001-1.035); Urobilinogen,Urine <2.0 mg/dL (<2.0)
--- NOTE | 2024-07-09 13:50 | ED ---
Male Urogenital HPI - General Chief complaint: Urogenital Stated complaint: Post-op issue/unable to urinate Time Seen by Provider: 07/09/24 12:57 Source: patient, family, RN notes reviewed Mode of arrival: ambulatory Limitations: no limitations - History of Present Illness Initial comments: This is a 68-year-old male who presents to the emergency department for difficulty with urination. Patient had shoulder surgery yesterday and has been unable to urinate since. States that he is now having increasing pain and pressure in his lower abdomen. Additionally, he has not had a bowel movement for the last 2 days. States that he tried taking Dulcolax and using a suppository, but has not had any relief. He is taking [place] postoperatively. - Related Data Home Medications Medication Instructions Recorded Confirmed Garlic 1 tab PO DAILY 06/09/16 07/08/24 Tamsulosin HCl [Flomax] 0.4 mg PO QAM 04/13/20 07/08/24 Aspirin 81 mg PO DAILY 01/09/22 07/07/24 Celecoxib [CeleBREX] 200 mg PO DAILY 01/09/22 07/07/24 HYDROcodone/APAP 5-325MG [[place] 1 tab PO Q6H PRN 06/30/24 07/08/24 5-325] Losartan/Hctz 100-25 1 tab PO DAILY 06/30/24 07/08/24 Previous Rx's Medication Instructions Recorded HYDROcodone/APAP 7.5-325MG [[place] 1 tab PO Q6HR PRN #28 tab 07/08/24 7.5-325] Allergies Allergy/AdvReac Type Severity Reaction Status Date / Time No Known Allergies Allergy Verified 07/09/24 12:56 Review of Systems ROS Statement: Those systems with pertinent positive or pertinent negative responses have been documented in the HPI. ROS Other: All systems not noted in ROS Statement are negative. Past Medical History Past Medical History: Hypertension, Osteoarthritis (OA), Pneumonia, Prostate Disorder Additional Past Medical History / Comment(s): Diverticulitis, hx perforated bowel, obstructed bowel, slight leaky valve per pt., pneumonia couple years ago. BPH History of Any Multi-Drug Resistant Organisms: None Reported Past Surgical History: Bowel Resection, Hernia Repair, Orthopedic Surgery Additional Past Surgical History / Comment(s): bowel resection due to perforation, incisional hernia repair, manuel carpal tunnel release. colonoscopy Past Anesthesia/Blood Transfusion Reactions: No Reported Reaction Past Psychological History: No Psychological Hx Reported Smoking Status: Former smoker Past Alcohol Use History: Occasional Past Drug Use History: None Reported - Past Family History Father Family Medical History: Cancer Additional Family Medical History / Comment(s): prostate Mother Family Medical History: No Reported History Additional Family Medical History / Comment(s): Mother will soon be 90yrs old. Sister(s) Family Medical History: Cancer Additional Family Medical History / Comment(s): colon General Exam Limitations: no limitations General appearance: alert, in no apparent distress Head exam: Present: atraumatic, normocephalic, normal inspection Respiratory exam: Present: normal lung sounds bilaterally. Absent: respiratory distress, wheezes, rales, rhonchi, stridor Cardiovascular Exam: Present: regular rate, normal rhythm, normal heart sounds. Absent: systolic murmur, diastolic murmur, rubs, gallop, clicks GI/Abdominal exam: Present: soft, tenderness (Suprapubic), normal bowel sounds. Absent: distended Neurological exam: Present: alert, oriented X3, CN II-XII intact Psychiatric exam: Present: normal affect, normal mood Skin exam: Present: warm, dry, intact, normal color. Absent: rash Course Vital Signs 07/09/24 07/09/24 12:54 14:35 Temperature 98.2 F 98.1 F Pulse Rate 101 H 81 Respiratory 18 18 Rate Blood Pressure 182/84 139/65 O2 Sat by Pulse 98 96 Oximetry Medical Decision Making - Medical Decision Making This is a 68-year-old male who presents to the emergency department for urinary retention and constipation. Was pt. sent in by a medical professional or institution? @ -No Did you speak to anyone other than the patient for history? @ -No Did you review nursing and triage notes? @ -Yes, and I agree, it is accurate with regards to the patient's symptoms. Were old charts reviewed? @ -No Differential Diagnosis? @ -Side effect of anesthesia, BPH, infection, blood clot, this is not meant to be an all-inclusive list. EKG interpreted by me (3pts min.)? @ -Not obtained X-rays interpreted by me (1pt min.)? @ -KUB x-ray obtained. My interpretation identifies no dilation of the bowel loops. CT interpreted by me (1pt min.)? @ -Not obtained U/S interpreted by me (1pt. min.)? @ -Not obtained What testing was considered but not performed? (CT, X-rays, U/S, labs)? Why? @ -None What meds were considered but not given? Why? @ -None Did you discuss the management of the patient with other professionals? @ -No Did you reconcile home meds? @ -No Was smoking cessation discussed for >3mins.? @ -No Was critical care preformed (if so, how long)? @ -No Were there social determinants of health that impacted care today? How? (Homelessness, low income, unemployed, alcoholism, drug addiction, tra nsportation, low edu. Level, literacy, decrease access to med. care, group home, rehab)? @ -No Was there de-escalation of care discussed even if they declined? (Discuss DNR or withdrawal of care, Hospice)? @ -No What co-morbidities impacted this encounter? (DM, HTN, Smoking, COPD, CAD, Cancer, CVA, Hep., AIDS, mental health diagnosis, sleep apnea, morbid obesity)? @ -None Was patient admitted / discharged? @ -Discharged. Bladder scan performed demonstrating 885 mL of urine. Reyna catheter subsequently inserted and approximately 1 L of urine was drained. Patient had significant relief in symptoms afterwards. Urinalysis obtained which was negative for signs of infection. KUB x-ray obtained due to concern for constipation. Gas and fecal material were demonstrated throughout the colon, however there was no significant stool burden noted. Advised that the narcotics will make him more prone to constipation. Advised something like MiraLAX daily to see if this helps with his stool. He was discharged home with his Reyna catheter in place to follow-up with urology. Patient discharged home in stable condition. Case discussed with ED attending Dr. Harry. Return precautions reviewed in depth, the patient is instructed to return to the emergency department with any new, worsening, or concerning symptoms. Patient verbalized understanding. Undiagnosed new problem with uncertain prognosis? @ -None Drug Therapy requiring intensive monitoring for toxicity (Heparin, Nitro, Insulin, Cardizem)? @ -None Were any procedures done? @ -None Diagnosis/symptom? @ -Urinary retention, constipation Acute, or Chronic, or Acute on Chronic? @ -Acute Uncomplicated (without systemic symptoms) or Complicated (systemic symptoms)? @ -Uncomplicated Side effects of treatment? @ -None Exacerbation, Progression, or Severe Exacerbation] @ -Not applicable Poses a threat to life or bodily function? @ -No - Lab Data Lab Results 07/09/24 Range/Units 13:25 Urine Color Colorless Urine Appearance Clear (Clear) Urine pH 6.0 (5.0-8.0) Ur Specific [place] 1.014 (1.001-1.035) Urine Protein Negative (Negative) Urine Glucose (UA) Negative (Negative) Urine Ketones Negative (Negative) Urine Blood Negative (Negative) Urine Nitrite Negative (Negative) Urine Bilirubin Negative (Negative) Urine Urobilinogen <2.0 (<2.0) mg/dL Ur Leukocyte Esterase Negative (Negative) - Radiology Data Radiology results: report reviewed, image reviewed Disposition Clinical Impression: Urinary retention, Constipation Disposition: HOME SELF-CARE Instructions (If sedation given, give patient instructions): Urinary Retention in Men (ED), Reyna Catheter Placement and Care (ED), How to Change a Catheter Drainage Bag (DC) Additional Instructions: Return to the emergency department with any new, worsening, or concerning symptoms. Take an [id number] stool softener like MiraLAX to help with the constipation. Contact Dr. Pinzon's office. Let them know that you were seen in the emergency department for postoperative urinary retention and had a Reyna catheter placed. They will schedule you for a follow-up appointment. Is patient prescribed a controlled substance at d/c from ED?: No Referrals: Hakeem Blunt MD [Primary Care Provider] - 1-2 days Evin Pinzon MD [STAFF PHYSICIAN] - 1-2 days Time of Disposition: 14:28
--- NOTE | 2024-07-09 13:53 | XR ---
EXAMINATION TYPE: XR KUB DATE OF EXAM: 07/09/2024 1:40 PM COMPARISON: None. CLINICAL INDICATION: Male, 68 years old with history of Constipation, TECHNIQUE: Single view of the abdomen. FINDINGS: Small bowel demonstrates no evidence for dilatation or air fluid levels. Gas and fecal material is seen in non-distended colon. No convincing evidence for pneumoperitoneum. No unusual calcifications. The lung bases are clear. The osseous structures are intact. IMPRESSION: 1. Overall nonobstructive bowel gas pattern. [facility], , 07/09/2024 1:51 PM
[2024-07-09] MEDS: HYDROmorphone 1 MG/ML 1 ML SYRINGE IM STA (14:43)
[2024-07-09 14:53] VITALS: BP 139/65; PULSE 81; TEMP 98.1
== END 2024-07-09 14:53 | disposition home or self-care (01) ==
LOC: EC 12:53
DX: R33.9 Retention of urine, unspecified (principal); K59.00 Constipation, unspecified; Z87.891 Personal history of nicotine dependence
CPT/HCPCS: 81003; 74018; 99283; 96372; J1171